=== PATIENT | female | born 1965 | race Caucasian/White ===

== ENCOUNTER → 2016-12-10 | Outpatient (CLI) | payer BC ==
--- NOTE | 2016-12-10 18:04 | DX ---
Right Foot, Three Views History: Bilateral bunionectomy. Findings: Osteotomy of the right 1st metatarsal head and neck region, with two screws. Satisfactory alignment. No significant callus formation. Mild degenerative changes of the 1st metatarsal head, with subchondral sclerosis and osteophytes. The distal screw extends 2 mm through the plantar cortex of the 1st metatarsal. Right 2nd metatarsal head/neck osteotomy, with two screws in place, also demonstrating satisfactory a lignment. No definite significant callus formation. No destructive osseous lesions. Impression: Right 1st and 2nd metatarsal osteotomies and 1st metatarsal bunionectomy, with satisfact ory alignment.
--- NOTE | 2016-12-10 18:55 | DX ---
Left foot series 3 views weight-bearing 1413 hours. History: Followup bunion surgery. Findings: Comparison to November 06, 2016. There is stable alignment of the osteotomy distal shaft of the left first and second metatarsal with 2 small caliber compression screws across each osteotomy. There is no evidence of callus formation. T he osteotomies are well apposed. There is bunionectomy distal head of the first metatarsal. There is good alignment of the toes. Joint spaces are normal. Soft tissues are unremarkable. Impression: Good alignment of osteotomy with small caliber screws distal first and second metatarsals .
== END ==
LOC: BMCIMAGING 14:08
PROVIDERS: ATTEND Podiatrist Foot & Ankle Surgery
DX: Z09 Encounter for follow-up examination after completed treatment for conditions other than malignant neoplasm (principal); Z98.890 Other specified postprocedural states

== ENCOUNTER 2017-09-17 11:23 | Inpatient (IN) | payer BC ==
--- NOTE | 2017-09-17 09:43 | PDHPUP ---
History & Physical Update H&P update statement: This history and physical update is based on an assessment of the patient which was completed after admission or registration (within 24 hours), but prior to the surgery/procedure. H&P update: H&P reviewed & patient examined, no change in patient's condition since H&P completed
[2017-09-17] MEDS ORDERED: cefOXitin SODIUM 2 GM in D5W 100 ML IV ONE (12:34)
[2017-09-17] MEDS ORDERED: LR 1,000 ML IV ONE (12:35)
[2017-09-17 12:54] LABS: HEMATOCRIT 41.6 % (38.0-47.0); HEMOGLOBIN 14.5 g/dL (12.6-16.3); MEAN CELL HEMOGLOBIN 32.8 pg (27.9-34.1); MEAN CELL HEMOGLOBIN CONCENTR. 34.9 g/dL (32.4-36.7); MEAN CELL VOLUME 94.1 fL (81.5-99.8); RED BLOOD CELL COUNT 4.42 10^6/uL (4.18-5.33); RED CELL DISTRIBUTION WIDTH 11.6 % (11.5-15.2)
[2017-09-17 13:12] LABS: ALANINE AMINOTRANSFERASE 26 IU/L (9-52); ALKALINE PHOSPHATASE 47 IU/L (38-126); ANION GAP 11 mEq/L (8-16); ASPARTATE AMINOTRANSFERASE 36 IU/L (14-46); BILIRUBIN,TOTAL 1.3 mg/dL (0.1-1.4); CALCIUM 9.7 mg/dL (8.5-10.4); CARBON DIOXIDE 19 mEq/l (22-31); CHLORIDE 104 mEq/L (97-110); CREATININE 0.8 mg/dL (0.6-1.0); GLOMERULAR FILTRATION RATE > 60; GLUCOSE 94 mg/dL (70-100); POTASSIUM 4.5 mEq/L (3.5-5.2); SODIUM 134 mEq/L (134-144); SPECIMEN HEMOLYSIS 194; TOTAL PROTEIN 7.5 g/dL (6.3-8.2)
[2017-09-17] MEDS ORDERED: BUPIVACAINE 0.5% 30 ML SDV ONE ×2 (13:31→16:15)
[2017-09-17] MEDS ORDERED: LR 500 ML IV PRN (15:23)
[2017-09-17] MEDS ORDERED: NALOXONE HCL 0.4 MG/ML INJ IVP PRN ×3 (15:23→17:19)
[2017-09-17] MEDS ORDERED: OXYCODONE/APAP 5/325 TAB PO PRN (15:23)
[2017-09-17] MEDS ORDERED: ALBUTEROL 3 ML DEYVIAL IH PRN (15:23)
[2017-09-17] MEDS ORDERED: MIDAZOLAM 2 MG/2 ML VIAL IVP ONE (15:23)
[2017-09-17] MEDS ORDERED: HYDROmorphONE/DILAUDID 1 MG/ML INJ IVP PRN ×2 (15:23→17:25)
[2017-09-17] MEDS ORDERED: fentaNYL 100 MCG/2 ML INJ IVP PRN (15:23)
[2017-09-17] MEDS ORDERED: ONDANSETRON 4 MG/2 ML VIAL IVP PRN ×3 (15:23→17:17)
[2017-09-17] MEDS ORDERED: MIDAZOLAM 2 MG/2 ML VIAL ONE (15:27)
[2017-09-17] MEDS ORDERED: PROPOFOL/EMULSION 500 MG/50 ML BOTTLE IV ONE ×2 (15:30→16:36)
[2017-09-17] MEDS ORDERED: fentaNYL 100 MCG/2 ML INJ ONE ×2 (15:31→16:10)
[2017-09-17] MEDS ORDERED: DEXAMETHASONE 4 MG/ML VIAL ONE ×2 (16:28)
[2017-09-17] MEDS ORDERED: ONDANSETRON 4 MG/2 ML VIAL ONE (16:28)
[2017-09-17] MEDS ORDERED: ROCURONIUM 100 MG/10 ML VIAL ONE (16:28)
[2017-09-17] MEDS ORDERED: RANITIDINE 50 MG/2 ML VIAL ONE (16:28)
[2017-09-17] MEDS ORDERED: METOCLOPRAMIDE 10 MG/2 ML VIAL ONE (16:28)
[2017-09-17] MEDS ORDERED: epHEDrine SULFATE 10 MG/ML SYR ONE (16:39)
--- NOTE | 2017-09-17 16:47 | PDANEPAE ---
ANE History of Present Illness Ex-Lap ANE Past Medical History - Cardiovascular History Hx Hypertension: No Hx Arrhythmias: No Hx Chest Pain: No Hx Coronary Artery / Peripheral Vascular Disease: No Hx CHF / Valvular Disease: No Hx Palpitations: No - Pulmonary History Hx COPD: No Hx Asthma/Reactive Airway Disease: No Hx Recent Upper Respiratory Infection: No Hx Oxygen in Use at Home: No Hx Sleep Apnea: No Sleep Apnea Screening Result - Last Documented: Negative - Neurologic History Hx Cerebrovascular Accident: No Hx Seizures: No Hx Dementia: No - Endocrine History Hx Diabetes: No - Renal History Hx Renal Disorders: No - Liver History Hx Hepatic Disorders: No - Cancer History Hx Cancer: No - Congenital Disorder History Hx Congenital Disorders: No - GI History Hx Gastrointestinal Disorders: Yes Gastrointestinal History Comment: CROHN'S - Other Health History Other Health History: NONE - Chronic Pain History Chronic Pain: Yes (LUQ OF ABDOMEN) - Surgical History Prior Surgeries: 2 BOWEL RESECTIONS FISCURECTOMY BILAT BUNIONECTOMY, APPENDECTOMY ANE Review of Systems Review of Systems: - Exercise capacity METS (RN): 5 METS ANE Patient History - Allergies Allergies/Adverse Reactions: Latex, Natural Rubber Allergy (Severe, Verified 09/09/17 15:30) GLUTEN Allergy (Severe, Uncoded 09/09/17 15:30) WHEAT Allergy (Severe, Uncoded 09/09/17 15:30) - Home Medications Home Medications: Prednisone 09/09/17 [Last Taken Unknown] - NPO status NPO Since - Liquids (Date): 09/17/17 NPO Since - Liquids (Time): 03:30 NPO Since - Solids (Date): 09/15/17 NPO Since - Solids (Time): 16:00 - Smoking Hx Smoking Status: Never smoked - Family Anes Hx Family Hx Anesthesia Complications: none ANE Labs/Vital Signs - Labs Result Diagrams: 09/17/17 12:34 09/17/17 12:34 - Vital Signs Blood Pressure: 128/71 Heart Rate: 80 Respiratory Rate: 16 O2 Sat (%): 94 Height: 167.64 cm Weight: 68.492 kg ANE Physical Exam - Airway Neck exam: FROM Mallampati Score: Class 2 Mouth exam: normal dental/mouth exam - Pulmonary Pulmonary: clear to auscultation - Cardiovascular Cardiovascular: regular rate and rhythym - ASA Status ASA Status: II ANE Anesthesia Plan Anesthesia Plan: general endotracheal anesthesia, epidural (Thoracic Epidural)
[2017-09-17] MEDS ORDERED: NARCOTIC DRIP BAG-TOTAL ALL TYPES EP PRN (16:50)
[2017-09-17] MEDS ORDERED: SUGAMMADEX SODIUM 200 MG/2 ML VIAL IVP ONE (16:55)
--- NOTE | 2017-09-17 17:16 | POSTOPPROG ---
Post Op Note Date of Operation: 09/17/17 Surgeon: Max Orantes Geoscientist: Miesha Hernandez Anesthesiologist: Mack Powell Anesthesia: GET(General Endotracheal) Pre-op Diagnosis: Crohn's stricture Post-op Diagnosis: same, grossly appearing active Crohn's at stricture site Procedure: laparotomy, resection of ileocolonic anastomosis Findings: stricture at old anastomosis, active crohn's at site, not widespread Inf/Abcess present in the surg proc area at time of surgery?: No EBL: Minimal Complications: none Specimen(s): ileocolonic section to pathology
[2017-09-17] MEDS ORDERED: HYDROmorphONE/DILAUDID 6 MG/30 ML PCA IV PRN (17:19)
[2017-09-17] MEDS ORDERED: predniSONE 10 MG TAB PO ONE (17:24)
--- NOTE | 2017-09-17 17:25 | POSTANESTH ---
Post Anesthetic Evaluation Cardiovascular Status: Normal, Stable Respiratory Status: Normal, Stable Level of Consciousness/Mental Status: Can Participate in Eval, Alert and Oriented Pain Control: Adequate, Prn Tx Ordered Nausea/Vomiting Control: Adequate, Prn Tx Ordered Complications Possibly Related to Anesthesia: None Noted
[2017-09-17] MEDS ORDERED: D5W 1/2 NS W/ 20 KCl/L 1,000 ML IV SCH (17:30)
[2017-09-17] MEDS: DOCUSATE SODIUM 100 MG CAP PO SCH (20:30)
[2017-09-17] MEDS: NS W/ 20 KCl/L 1,000 ML IV SCH (20:31)
[2017-09-17] MEDS: cefOXitin SODIUM 1 GM in D5W 50 ML IV SCH (22:32)
[2017-09-18] MEDS: cefOXitin SODIUM 1 GM in D5W 50 ML IV SCH ×2 (04:12→09:29)
[2017-09-18] MEDS: NS W/ 20 KCl/L 1,000 ML IV SCH ×3 (04:16→20:35)
[2017-09-18 04:58] LABS: HEMOGLOBIN 13.7 g/dL (12.6-16.3)
[2017-09-18 05:32] LABS: ANION GAP 11 mEq/L (8-16); CALCIUM 9.2 mg/dL (8.5-10.4); CARBON DIOXIDE 19 mEq/l (22-31); CHLORIDE 106 mEq/L (97-110); CREATININE 0.8 mg/dL (0.6-1.0); GLOMERULAR FILTRATION RATE > 60; GLUCOSE 108 mg/dL (70-100); POTASSIUM 4.3 mEq/L (3.5-5.2); SODIUM 136 mEq/L (134-144)
[2017-09-18] MEDS: DC NARCS MISC SCH (08:18)
[2017-09-18] MEDS: REGARDING ANTICOAG MISC SCH (08:18)
[2017-09-18] MEDS: fentaNYL 2MCG/ML&BUP 0.0625% in 100ML NS EP SCH ×2 (08:48→20:58)
[2017-09-18] MEDS: DOCUSATE SODIUM 100 MG CAP PO SCH ×2 (08:48→19:34)
--- NOTE | 2017-09-18 09:18 | SOAPPROG ---
SOAP Progress Note Assessment/Plan: Assessment: 52yo F POD #1 s/p laparotomy, resection of ileocolonic anastomosis for Crohn's. Continue clear liquid diet. Will consider advancing to regular later today or tomorrow morning. Continue Woody until epidural is removed. Continue pain control. Will transition to PO pain medications when tolerating regular diet. Ambulate as tolerated Routine post op care S: No complaints. Pain is well controlled with epidural. Passing gas. Tolerating clears. Denies f/c, n/v. O: Afebrile Lying in bed, NAD MMM No increased WOB Abd soft, nontender, nondistended. Incision c/d/i with steri strips in place Objective: Vital Signs Temp Pulse Resp BP Pulse Ox 37.1 C 81 18 111/58 L 92 09/18/17 07:19 09/18/17 07:19 09/18/17 07:19 09/18/17 07:19 09/18/17 07:19 Laboratory Results 09/18/17 04:16 09/18/17 04:16 09/17/17 09/18/17 09/19/17 05:59 05:59 05:59 Intake Total 3554 Output Total 2185 Balance 1369 ICD10 Worksheet Patient Problems: Problems Problem Status Onset Crohn's disease Acute - ICD10 Problem Qualifiers (1) Crohn's disease
[2017-09-18] MEDS ORDERED: NON-FORMULARY NEW DRUG (Zolpidem Tartrate [Ambien 10 Mg] 5 MG) PO PRN (09:37)
[2017-09-18] MEDS: predniSONE 10 MG TAB PO SCH (09:54)
[2017-09-18] MEDS ORDERED: ZOLPIDEM TARTRATE 5 MG TAB PO PRN (09:58)
--- NOTE | 2017-09-18 11:24 | POSTANESTH ---
Post Anesthetic Evaluation Cardiovascular Status: Normal, Stable Respiratory Status: Normal, Stable Level of Consciousness/Mental Status: Can Participate in Eval, Alert and Oriented Pain Control: Adequate, Prn Tx Ordered Nausea/Vomiting Control: Adequate, Prn Tx Ordered (POD#1 Thoracic Epidural - Providing good pain coverage, while allowing her to ambulate the hallway - continue current epidural rate)
--- NOTE | 2017-09-18 14:12 | ASMTCMCOM ---
CM Note CM Note Notes: Pt. is a 52-year-old woman admitted for a 4mm Crohns stricture surgery. Pt. w/ hx. of bowel surgeries for Crohns. Pt. lives w/ her , Raphael. 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 SWer checked in w/ bedside RN. Anticipate indpendent d/c when ready. CM available should d/c POC change. Date Signed: 09/18/2017 02:11 PM Electronically Signed By:Dorota Alonzo LCSW
[2017-09-18] MEDS ORDERED: BLISOVI FE PO SCH (19:00)
[2017-09-18] MEDS ORDERED: JUNEL FE PO SCH (19:00)
[2017-09-18] MEDS ORDERED: BIRTH CONTROL PO SCH (19:00)
--- NOTE | 2017-09-18 21:07 | GOP ---
[f rep st] OPERATIVE REPORT DATE OF OPERATION: 09/17/2017 SURGEON: Max Orantes MD HOUSE WIRER HELPER: LUKE Hugo. ANESTHESIOLOGIST: Mack Powell DO. PREOPERATIVE DIAGNOSIS: Crohn disease with ileocolonic stricture. POSTOPERATIVE DIAGNOSIS: Crohn disease with ileocolonic stricture. PROCEDURE PERFORMED: 1. Laparotomy with small bowel and partial colon resection. 2. Omental pedicle flap. FINDINGS: The patient was found with markedly inflamed distal 2-3 inches of the terminal ileum leadi ng into the colon at the ileocolic anastomosis. The colon appeared to be free of disease and the rem ainder of the small bowel was free of disease, including a previous other resection in the mid small bowel which appeared to be completely intact and normal. ESTIMATED BLOOD LOSS: Less than 15 cc. DESCRIPTION OF PROCEDURE: The patient was taken to the operating room where she received a satisfact ory general endotracheal anesthesia by Dr. Powell. She was placed in the supine position, prepped and draped in the usual sterile fashion. A midline abdominal scar was excised and the abdomen was then carefully entered through the linea alba. Hemostasis was assured. An Fabio wound protector was use d for the wound. The small bowel was eviscerated. One previous anastomosis was evaluated and appear ed to be uninvolved. The ileocolic area was freed up by dividing the lateral peritoneal reflection a nd adhesions until they could be delivered up into the wound. They did not appear to be a candidate for stricture plasty or any other methods short of a short resection. The terminal ileum was divided after approximately 3 inches from the previous anastomosis. This was done with a SAURAV stapler and th e transverse colon was divided with a SAURAV stapler, approximately 2 inches from the anastomosis. Mese ntery between the 2 was divided with the Harmonic Scalpel and the specimen was removed and sent to Luke sorto, thought to be benign Crohn disease with severe stricture. The mesentery was approximated wi th a running 3-0 Vicryl suture. The bowel was anastomosed with a [id number] functional end-to-end anastomosis with a SAURAV stapler. A cross-application stapler was used to close the insertion site, an d the suture line was reinforced with interrupted 3-0 Vicryl mattress sutures. The suture line was t hen covered with an omental flap which was mobilized, and was then secured over the suture line with interrupted 3-0 Vicryl sutures. Flap had been created with the Harmonic Scalpel, mobilizing it off t he transverse colon. The wound was irrigated. Hemostasis was assured. At that point, a clean closu re system was used with all new close gowns and instruments and towels. Abdomen was closed with a ru nning #1 PDS suture for the linea alba, reinforced periodically with #1 Vicryl interrupted sutures. The wound was infiltrated with 0.5% Marcaine. Subcu was closed with a running 3-0 Vicryl suture, the skin with a 3-0 Monoderm Quill suture. She tolerated the procedure well. She was taken to recovery room in good condition. COMPLICATIONS: There were no complications. /[id number]/MODL
--- NOTE | 2017-09-18 21:28 | SOAPPROG ---
SOAP Progress Note Assessment/Plan: Assessment: POSTOP DAY 1. STATUS POST SMALL BOWEL RESECTION/DOING GREAT, NO PROBLEMS, TOLERATING P.O., GOOD URINE OUTPUT Plan: ADVANCE DIET A.M./PROBABLE DC EPIDURAL IN A.M. 09/18/17 21:27 Objective: Vital Signs Temp Pulse Resp BP Pulse Ox 36.8 C 85 16 105/75 94 09/18/17 19:21 09/18/17 19:21 09/18/17 19:21 09/18/17 19:21 09/18/17 19:21 Laboratory Results 09/18/17 04:16 09/18/17 04:16 09/17/17 09/18/17 09/19/17 05:59 05:59 05:59 Intake Total 3554 Output Total 5586 9840 Balance 1369 -3250 ICD10 Worksheet Patient Problems: Problems Problem Status Onset Crohn's disease Acute
[2017-09-19] MEDS: NS W/ 20 KCl/L 1,000 ML IV SCH (03:55)
--- NOTE | 2017-09-19 07:49 | SOAPPROG ---
SOAP Progress Note Assessment/Plan: Assessment: 52yo F POD #2 s/p laparotomy, resection of ileocolonic anastomosis for Crohn's. Adv to light diet this morning. If tolerated will consider advancing again later today. Continue Woody until epidural is removed. Epidural d/c trial today. Continue pain control. Will transition to PO pain medications when tolerating regular diet. Ambulate as tolerated Routine post op care S: No complaints. Pain is well controlled with epidural. Passing gas. Tolerating clears, eager to have light diet. Denies f/c, n/v. O: Afebrile Lying in bed, NAD MMM No increased WOB Abd soft, nontender, nondistended. Incision c/d/i with steri strips in place Objective: Vital Signs Temp Pulse Resp BP Pulse Ox 37.0 C 82 16 111/61 96 09/19/17 07:32 09/19/17 07:32 09/19/17 07:32 09/19/17 07:32 09/19/17 07:32 Laboratory Results 09/18/17 04:16 09/18/17 04:16 09/18/17 09/19/17 09/20/17 05:59 05:59 05:59 Intake Total 3554 1600 Output Total 1905 4100 Balance 1369 -2500 ICD10 Worksheet Patient Problems: Problems Problem Status Onset Crohn's disease Acute - ICD10 Problem Qualifiers (1) Crohn's disease
[2017-09-19] MEDS: predniSONE 10 MG TAB PO SCH (08:52)
[2017-09-19] MEDS: DOCUSATE SODIUM 100 MG CAP PO SCH (08:55)
[2017-09-19] MEDS: DC NARCS MISC SCH (09:28)
[2017-09-19] MEDS: REGARDING ANTICOAG MISC SCH (09:28)
[2017-09-19] MEDS: fentaNYL 2MCG/ML&BUP 0.0625% in 100ML NS EP SCH (09:58)
[2017-09-19 10:40] VITALS: RESP 20
[2017-09-19] MEDS: HYDROCODONE/APAP 5/325 TAB PO PRN ×2 (11:27→16:22)
[2017-09-19 14:24] VITALS: BP 131/79; PULSE 93; TEMP 96.9; O2SAT 94
--- NOTE | 2017-09-19 16:35 | ASDISCHSUM ---
Discharge Information Plan Status:Home with No Needs Medically Cleared to Leave: Discharge Date:09/19/2017 04:32 PM CM D/C Disposition:Home, Routine, Self-Care ADT D/C Disposition:Home, Routine, Self-Care Projected Discharge Date:09/19/2017 04:32 PM Transportation at D/C:Family Discharge Delay Reason: Follow-Up Date:09/19/2017 04:32 PM Discharge Slot: Final Diagnosis: Placement Information Patient Contact Information Contact Name:JAMALA Relationship: Address:[address] City:[facility] Phone: [facility]/Zip Code:[place] [address] Email: Financial Information Financial Class:HMO and PPO Plans Primary Plan Desc:[facility] PPO INDEMNITY Primary Plan Number:[id number] Secondary Plan Desc: Secondary Plan Number: Assessment Information BC CM Progress Note CM Note CM Note Notes: Pt. is a 52-year-old woman admitted for a 4mm Crohns stricture surgery. Pt. w/ hx. of bowel surgeries for Crohns. Pt. lives w/ her , Raphael. 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 Anticipate indpendent d/c when ready. CM available should d/c POC change. Date Signed: 09/18/2017 02:11 PM Electronically Signed By:Dorota Alonzo LCSW Intervention Information
== END 2017-09-19 16:32 | disposition home or self-care (01) | DRG 330 ==
LOC: F3N 11:42 → F3E 15:53
PROVIDERS: ADMIT Surgery; ATTEND Surgery
DX: K50.012 Crohn's disease of small intestine with intestinal obstruction (principal)
CPT/HCPCS: J0694; J0697; J1100; J2250; J2405; J2704; J2765; J2780; J3010

== ENCOUNTER 2018-04-14 11:08 | Emergency (ER) | payer OTHER, BC ==
--- NOTE | 2018-04-14 12:17 | EDPHY ---
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 States that she was in the operating suite, impacted the left frontal region of her head against the cabinet, had positive loss of consciousness and shortly thereafter developed a"severe headache". Positive nausea. No vomiting. No midline C-spine pain. No peripheral paresthesia, weakness, numbness. REVIEW OF SYSTEMS: A ten point review of systems was performed and is negative with the exception of the items mentioned in the HPI PAST MEDICAL/SURGICAL HISTORY: no anticoagulant use, SOCIAL HISTORY: denies alcohol use at time of incident PHYSICAL EXAM 1) GENERAL: Well-developed, well-nourished, alert and oriented. Appears uncomfortable Answering questions appropriately. 2) HEAD: Normocephalic, linear erythema extending from the left infraorbital region to the left eyebrow 3) HEENT: Pupils equal, round, reactive to light bilaterally. Negative Horners. Nasopharynx, oropharynx, clear. No deformity or angulation of nose. No septal hematoma. No rhinorrhea. No oral trauma. Ears bilaterally with normal tympanic membranes. No hemotympanum. No fluid or blood in the external auditory canal. No raccoon eyes. No Cesar sign. Teeth are normally aligned with no gross malocclusion, TMJ bilaterally nontender, facial bones nontender including the zygomatic arch, maxilla mandible. 4) NECK: No cervical collar is on. Posterior cervical spine is nontender, no stepoff, no effusion. Full range of motion which does not elicit any midline cervical spine pain, no posterior midline tenderness, no step-off. 5) LUNGS: Clear to auscultation bilaterally, no wheezes, no rhonchi, no retractions. No obvious signs of trauma. No chest wall pain. No flaring, no grunting. Moving symmetrically. No crepitus. 6) HEART: [Regular rate and rhythm, 7) ABDOMEN: No guarding, no rebound, no focal tenderness, no peritoneal signs, no signs of trauma, no ecchymosis 8) MUSCULOSKELETAL: Moving all extremities, no focal areas of tenderness, no obvious trauma. 9) BACK: No midline vertebral tenderness, no fluctuance, no step-off, no obvious trauma, no visual or palpable abnormality. 10) SKIN: No laceration. No abrasion 11) NEURO: Awake, alert, and oriented to person, place and time. Answers questions appropriately. There were no obvious focal neurologic abnormalities. No cerebellar dysfunction. Cranial nerves 2 through to 12 intact. Normal steady gait. Upper and lower extremities bilaterally with strength 5 / 5, reflexes 2+. DIFFERENTIAL DIAGNOSIS: Not necessarily in any particular order, my differential diagnosis includes, but is not limited to, concussion, skull fracture, intraparenchymal contusion, subarachnoid, subdural and epidural hematoma. The patient understands that this diagnosis is provisional and can never be 100% accurate. Smoking Status: Never smoked Constitutional: Initial Vital Signs Temperature (C) 36.8 C 04/14/18 11:17 Heart Rate 82 04/14/18 11:17 Respiratory Rate 18 04/14/18 11:17 Blood Pressure 118/80 04/14/18 11:17 O2 Sat (%) 98 04/14/18 11:17 O2 Delivery Mode Room Air Allergies/Adverse Reactions: Latex, Natural Rubber Allergy (Severe, Verified 04/14/18 11:15) GLUTEN Allergy (Severe, Uncoded 09/09/17 15:30) WHEAT Allergy (Severe, Uncoded 09/09/17 15:30) Home Medications: Medication Instructions Recorded 12/21 Control 1 tab PO DAILY@19 09/17/17 azaTHIOprine 04/14/18 MDM/Departure - MDM Imaging Results: Imaging Impressions Head CT 04/14/18 12:17 Impression: Head CT within normal limits. Results called and discussed with Guilherme Pettit at 04/14/2018 12:46 General information for patients regarding this examination can be found at [email or web address]. If you have questions or comments about this report, please contact me at [phone] (hospital) or [phone] (cell). Images reviewed by myself ED Course/Re-evaluation: 12:[address] ordered in this patient for trauma for the following indication: severe headache loss of consciousness and visible head trauma. Re-evaluation after CT imaging, discussed the imaging results. She is answering questions appropriately. Provided usual and customary head injury precautions and instructions. I do not think that further diagnostic studies are indicated from the emergency department. Care of patient under supervision of secondary supervising physician Dr Masterson. - Depart Disposition: Home, Routine, Self-Care Clinical Impression: Head injury due to trauma Qualifiers: Encounter type: initial encounter Qualified Code(s): S09.90XA - Unspecified injury of head, initial encounter Condition: Good Instructions: Concussion (ED), Head Injury (ED) Additional Instructions: ALTHOUGH THERE IS NO EVIDENCE OF SERIOUS HEAD INJURY AT THIS TIME, DELAYED SIGNS CAN APPEAR 24 TO 48 HOURS AFTER INJURY. PLEASE RETURN TO THE EMERGENCY DEPARTMENT (ED) IMMEDIATELY IF YOU HAVE INCREASED HEADACHE, PERSISTENT HEADACHE , VOMITING, WEAKNESS, CONFUSION OR VISUAL PROBLEMS. WE RECOMMEND THAT YOU DO NOT RESUME CONTACT SPORTS OR ACTIVITIES THAT TAKE COORDINATION OR BALANCE SUCH SKIING OR RIDING A BICYCLE UNTIL CLEARED TO DO SO BY YOUR DOCTOR OR BY A NEUROLOGIST. Referrals: Marie Brandon MD [Medical Doctor] - 1-2 days without fail
[2018-04-14 13:04] VITALS: BP 114/76
== END 2018-04-14 13:08 | disposition home or self-care (01) ==
DX: S09.90XA Unspecified injury of head, initial encounter (principal); Z91.040 Latex allergy status; W22.03XA Walked into furniture, initial encounter; Y92.530 Ambulatory surgery center as the place of occurrence of the external cause; Y99.0 Civilian activity done for income or pay; Y93.89 Activity, other specified